=== PATIENT | female | born 1975 | race Hispanic/Latino ===

== ENCOUNTER → 2017-10-07 | Outpatient (CLI) | payer BC ==
[~2017-10-07] MED LIST: LANSOPRAZOLE30 MG PO; SUCRALFATE1 GM PO
--- NOTE | 2017-10-07 18:47 | Diagnostic Imaging Report ---
Solid-phase gastric emptying study Reason for examination: Chronic nausea The protocol used for this study is based on the Consensus Recommendations for Gastric Scintigraphy by the [employer] [employer] and the Society of Nuclear Medicine. Clinical information: The patient is not diabetic. The patient has not had prior gastrointestinal surgery. The patient is not on any medications expected to affect gastric motility. The patient has been fasting for at least 6 hours prior to this exam. Radiopharmaceutical: Tc-99m sulfur colloid 1 mCi Report: The radiopharmaceutical was added to 1/2 cup egg whites that were then prepared and served with 2 pieces of white bread toasted, 30 grams of jam and 4 ounces of water. The patient took the meal orally without difficulty. Images were obtained of the abdomen in the anterior and posterior projections at 10 minutes post the meal and at 1, 2, 3, and 4 hours. Uptake was determined from the geometric mean of the anterior and posterior counts and the counts were corrected for decay of the radiolabel. The percent gastric retention of the labeled meal at: 1 hour was 76% (normal 30-90%) 2 hours was 22% (normal <60%) 3 hours was 9% (normal <30%) 4 hours was 1% (normal <10%) Impression: Normal gastric emptying pattern. The findings do not support the clinical diagnosis of gastroparesis. Signed by: Dr. Taylor Curry M.D. on 10/07/2017 6:44 PM
== END ==
LOC: NM 08:37
PROVIDERS: ATTEND Internal Medicine Gastroenterology
DX: K31.84 Gastroparesis (principal)
CPT/HCPCS: 78264; A9541

== ENCOUNTER 2017-10-20 07:05 | Emergency (ER) | payer BC ==
[~2017-10-20] VITALS: Ht 162.6 cm; Wt 49.9 kg
[2017-10-20] MEDS ORDERED: MORPHINE SULFATE INJ 4 MG/ML INJ IV STA (07:33)
[2017-10-20] MEDS ORDERED: FAMOTIDINE 20 MG/2 ML VIAL IV ONE ×2 (07:40→07:45)
[2017-10-20] MEDS ORDERED: ONDANSETRON HCL INJ 2 MG/ML VIAL IV ONE (07:45)
[2017-10-20 07:49] LABS: BASOPHILS % 0.5 % (0.0-1.0); EOSINOPHILS # (AUTO) 0.1 (0.0-0.4); EOSINOPHILS % 1.1 % (0.0-6.0); HEMATOCRIT 40.7 % (34.2-44.1); HEMOGLOBIN 13.3 g/dL (12.0-16.0); LYMPHOCYTES % 31.9 % (18.0-39.1); MEAN CORPUSCULAR HEMOGLOBIN 27.9 pg (28-32); MEAN CORPUSCULAR HGB CONC 32.7 g/dL (31-35); MEAN CORPUSCULAR VOLUME 85.3 fL (81-99); MONOCYTES # (AUTO) 0.5 (0.2-0.8); MONOCYTES % 8.3 % (4.4-11.3); NEUTROPHILS # (AUTO) 3.6 (2.1-6.9); NEUTROPHILS % 57.9 % (38.7-80.0); PLATELET COUNT 272 x10e3/uL (140-360); RED BLOOD COUNT 4.77 x10e6/uL (3.6-5.1); RED CELL DISTRIBUTION WIDTH 14.4 % (11.7-14.4)
[2017-10-20] MEDS ORDERED: DIATRIZOATE MEGL/DIATRIZOA SOD 30 ML BTL PO ONE (07:50)
[2017-10-20 07:51] LABS: BILIRUBIN,URINE NEGATIVE (NEGATIVE); CLARITY,URINE SL CLOUDY (CLEAR); COLOR,URINE YELLOW (YELLOW); KETONES,URINE 2+ (NEGATIVE); LEUKOCYTE ESTERASE ,URINE NEGATIVE (NEGATIVE); NITRITE,URINE NEGATIVE (NEGATIVE); PROTEIN,URINE DIPSTICK NEGATIVE (NEGATIVE); URINE UROBILINOGEN 0.2 mg/dL (0.2 - 1)
[2017-10-20 08:04] LABS: BACTERIA,URINE RARE /HPF; EPITHELIAL CELLS,URINE FEW /LPF; MUCUS,URINE FEW (RARE)
[2017-10-20 08:08] LABS: ALANINE AMINOTRANSFERASE 17 IU/L (0-55); ALBUMIN 4.5 g/dL (3.5-5.0); ALBUMIN/GLOBULIN RATIO 1.2 (0.8-2.0); ALKALINE PHOSPHATASE 43 IU/L (40-150); AMYLASE 48 U/L (25-125); ANION GAP 13.3 mmol/L (8-16); BLOOD UREA NITROGEN 12 mg/dL (7-26); BUN/CREATININE RATIO 17 (6-25); CALCIUM 9.4 mg/dL (8.4-10.2); CARBON DIOXIDE 22 mmol/L (22-29); CHLORIDE 107 mmol/L (98-107); CREATININE, SERUM 0.71 mg/dL (0.57-1.11); EST GLOMERULAR FILTRATION RATE > 60 ML/MIN (60-); GLUCOSE 86 mg/dL (74-118); LIPASE 49 U/L (8-78); POTASSIUM 3.3 mmol/L (3.5-5.1); SODIUM 139 mmol/L (136-145)
[2017-10-20] MEDS ORDERED: DONNATAL/LIDOCAINE/MAALOX 30 ML SUSP PO ONE (09:45)
[2017-10-20] MEDS ORDERED: LIDOCAINE VISC 2% SOLN 15 ML UDC ONE (09:51)
[2017-10-20] MEDS ORDERED: BELLADONNA ALK/PHENOBARBITAL 5 ML UDC ONE (09:52)
[2017-10-20] MEDS ORDERED: MAGNESIUM/ALUMINUM/SIMETHICONE 30 ML UDC ONE (09:52)
--- NOTE | 2017-10-20 09:53 | Diagnostic Imaging Report ---
PROCEDURE: CT ABDOMEN AND PELVIS WITH CONTRAST TECHNIQUE: The abdomen and pelvis were scanned utilizing a multidetector helical scanner from the diaphragm to the lesser trochanter after the IV administration of 100 cc of Isovue 370 and the oral administration of water and are mixed with Gastrografin. Coronal and sagittal multiplanar reformations were obtained. DLP: 195.46 mGy-cm COMPARISON: None. INDICATIONS: EPIGASTRIC PAIN, RADIATING TO BACK FINDINGS: LOWER THORAX: Normal. HEPATOBILIARY: There is intrahepatic biliary dilatation predominantly within the left lobe. Extrahepatic biliary dilatation is also present with the common bile duct measuring 1 cm. Multiple hepatic cysts are present with the largest measuring 9 mm.. Gallbladder is absent with clips in the fossa. SPLEEN: No splenomegaly. PANCREAS: No focal masses or ductal dilatation. ADRENALS: No adrenal nodules. KIDNEYS/URETERS: No hydronephrosis or solid mass lesions. There are multiple renal cysts with the largest measuring 1.3 cm in the right lower pole. A 5 mm left upper pole nonobstructing stone is present. PELVIC ORGANS/BLADDER: The cervix is prominent. Uterine cavity is fluid filled PERITONEUM / RETROPERITONEUM: No free air or fluid. Single clip in the pelvis likely represents a dropped clip. LYMPH NODES: No lymphadenopathy. VESSELS: Unremarkable. GI TRACT: No distention or wall thickening. BONES AND SOFT TISSUES: There is a small fat containing umbilical hernia. IMPRESSION: 1. Intrahepatic and extrahepatic biliary dilatation. 2. Nonobstructing left upper pole renal stone. 3. Multiple small hepatic and renal cysts. Jermaine Mora D.O. Dictated by: Jermaine Mora D.O. on 10/20/2017 at 9:57 Electronically approved by: Jermaine Mora D.O. on 10/20/2017 at 9:57
[2017-10-20] MEDS ORDERED: DIPHENHYDRAMINE HCL INJ 50 MG/ML VIAL IV ONE (11:00)
[2017-10-20] MEDS ORDERED: PROMETHAZINE 12.5MG/ NACL 0.9% 12.5 MG/50 ML BAG IV ONE (11:00)
[2017-10-20 11:27] VITALS: BP 109/79
[2017-10-20] MEDS ORDERED: SODIUM CHLORIDE 0.9% 50ML 50 ML ONE (14:18)
[2017-10-20] MEDS ORDERED: IOPAMIDOL 370 MG/ML 200 ML INFUS..BTL INJ ONE (14:18)
[2017-10-21] MEDS ORDERED: ZOFRAN ODT8 MG PO (09:28)
[2017-10-21] MEDS ORDERED: PANTOPRAZOLE SO40 MG PO (09:28)
[2017-10-21] MEDS ORDERED: METOCLOPRAMIDE10 MG PO (09:28)
[2017-10-21] MEDS ORDERED: TYLENOL PO (09:29)
== END 2017-10-20 12:01 | disposition home or self-care (01) ==
LOC: ER 07:05
DX: R10.13 Epigastric pain (principal); R11.2 Nausea with vomiting, unspecified; K25.3 Acute gastric ulcer without hemorrhage or perforation
CPT/HCPCS: 36415; 74177; 80053; 81001; 82150; 83690; 84702; 85025; 87086; 99284; J1200; J2270; J2405; J2550; Q9967

== ENCOUNTER → 2017-10-21 | Outpatient (CLI) | payer BC ==
[~2017-10-21] MED LIST changes: +GADOBENATE DIMEGLUMINE 1 ML IV ONE; +METOCLOPRAMIDE10 MG PO; +PANTOPRAZOLE SO40 MG PO; +TYLENOL PO; +ZOFRAN ODT8 MG PO
--- NOTE | 2017-10-21 11:00 | Diagnostic Imaging Report ---
PROCEDURE: MRCP WITH AND WITHOUT CONTRAST TECHNIQUE: Multiplanar multisequence MRI images were obtained without and with contrast. 10 cc of multisequence was administered intravenously. COMPARISON: CT 10/20/2017 INDICATIONS: RUQ pain FINDINGS: LIVER: No hepatic signal abnormality. Multiple cysts are noted, mostly simple with a few mildly complex cysts with septations. BILIARY: Cholecystectomy. Biliary ductal dilatation with the common bile duct measuring 1 cm, likely related to post cholecystectomy reservoir effect. No filling defects in the common bile duct. PANCREAS: No mass or ductal dilatation. SPLEEN: No splenomegaly. ADRENALS: No nodules. KIDNEYS: No hydronephrosis or mass in the imaged portion of the kidneys. Multiple simple and mildly complex cysts in both kidneys, largest measures 1.6 cm and the right superior renal pole. Stones are difficult to visualize with MRI. The previously noted 5 mm left renal calculus is better seen on prior CT. PERITONEUM / RETROPERITONEUM: No upper abdominal free fluid. LYMPH NODES: No upper abdominal lymphadenopathy. VESSELS: Unremarkable. BONES AND SOFT TISSUES: Small fat-containing umbilical hernia. No suspicious marrow signal abnormalities. IMPRESSION: 1. Cholecystectomy with biliary ductal dilatation likely related to post cholecystectomy reservoir effect. 2. Hepatic and renal cysts. 1. Dictated by: Anders Welch M.D. on 10/21/2017 at 11:05 Electronically approved by: Anders Welch M.D. on 10/21/2017 at 11:05
== END ==
LOC: MRI 07:11
PROVIDERS: ATTEND Internal Medicine Gastroenterology
DX: R10.9 Unspecified abdominal pain (principal); Q44.5 Other congenital malformations of bile ducts
CPT/HCPCS: 74183

== ENCOUNTER → 2017-10-22 | Day surgery (SDC) | payer BC ==
[~2017-10-22] MED LIST changes: +FENTANYL CITRATE/PF 100MCG/2 ML INJ ONE; -GADOBENATE DIMEGLUMINE 1 ML IV ONE; +MIDAZOLAM HCL 2 MG/2 ML VIAL ONE; +PROPOFOL IV EMULSION 10 MG/ML 50 ML VIAL ONE
--- NOTE | 2017-10-22 11:17 | Operative Report ---
DATE OF PROCEDURE: October 22, 2017 REFERRING PHYSICIAN: Dr. Marilee Davis PROCEDURE PERFORMED: Esophagogastroduodenoscopy with biopsies. INDICATIONS FOR EGD: Upper abdominal pain and nausea. MEDICATION: Patient was done under MAC. Please see anesthesiologist's note. PROCEDURE: With the patient in the left lateral decubitus position, the flexible fiberoptic Olympus gastroscope was introduced into the esophagus under direct visualization without any difficulty. There was some patchy erythema noted in the distal esophagus. The scope was then advanced with ease into the stomach. Mucosa overlying the antrum revealed some patchy intense erythema and low-grade edema, and biopsies were obtained and sent to stain for H. pylori. The pylorus was intubated with ease. The scope was advanced into the 2nd portion of the duodenum. Biopsies were obtained from the proximal 2nd portion to rule out sprue. Mucosa overlying the duodenal bulb appeared to be within normal limits. The scope was then withdrawn back into the stomach and retroflexed. The mucosa overlying the fundus and the cardia appeared to be within normal limits. The scope was then straightened out. The stomach was decompressed. The scope was subsequently withdrawn. Patient tolerated the procedure well. IMPRESSION 1. Distal esophagitis, mild. 2. Gastritis, biopsied. Biopsies sent to stain for Helicobacter pylori. 3. Rule out sprue. PLAN: Follow up histology. Increase Protonix to 40 mg 1 p.o. a.c. b.i.d. Continue Carafate 1 g p.o. a.c. t.i.d. and at bedtime. Job#: [id number] RI cc:MARILEE DAVIS MD
== END | disposition home or self-care (01) ==
LOC: OR 08:35
PROVIDERS: ATTEND Internal Medicine Gastroenterology
DX: K29.50 Unspecified chronic gastritis without bleeding (principal); K20.8 Other esophagitis; K31.84 Gastroparesis; R19.7 Diarrhea, unspecified; Q21.1 Atrial septal defect; Z80.0 Family history of malignant neoplasm of digestive organs
CPT/HCPCS: 43239; 81025; J2250

== ENCOUNTER 2018-01-02 14:11 | Emergency (ER) | payer BC ==
[~2018-01-02] VITALS: Ht 162.6 cm; Wt 53.1 kg
[~2018-01-02 14:11] MED LIST changes: -FENTANYL CITRATE/PF 100MCG/2 ML INJ ONE; -MIDAZOLAM HCL 2 MG/2 ML VIAL ONE; -PROPOFOL IV EMULSION 10 MG/ML 50 ML VIAL ONE
--- NOTE | 2018-01-02 18:26 | Diagnostic Imaging Report ---
EXAM: Abdomen 2 Views INDICATION: \S\ABD PAIN \S\[id number] \S\1739 \S.br\COMPARISON: CT dated 10/20/2017 FINDINGS: Nonobstructive bowel gas pattern. No signs of pneumoperitoneum. No definite calcification overlying renal shadows. Right upper quadrant cholecystectomy clips. No acute osseous abnormality. Surgical clip overlying pelvis. Lung bases are clear. IMPRESSION: 1. Nonobstructive bowel gas pattern. Signed by: Dr. Del Early MD on 01/02/2018 6:22 PM
== END 2018-01-02 19:27 | disposition home or self-care (01) ==
LOC: ER 14:11
DX: R10.11 Right upper quadrant pain (principal); K58.0 Irritable bowel syndrome with diarrhea
CPT/HCPCS: 74022; 81025; 99283

== ENCOUNTER 2018-03-23 23:53 | Emergency (ER) | payer BC ==
[~2018-03-23] VITALS: Ht 162.6 cm; Wt 53.1 kg
== END 2018-03-24 01:15 | disposition home or self-care (01) ==
LOC: ER 23:53
DX: R10.13 Epigastric pain (principal); R11.0 Nausea; K29.50 Unspecified chronic gastritis without bleeding; F41.9 Anxiety disorder, unspecified; K21.9 Gastro-esophageal reflux disease without esophagitis; D64.9 Anemia, unspecified
CPT/HCPCS: 99282

== ENCOUNTER 2018-09-07 14:09 | Emergency (ER) | payer BC ==
[~2018-09-07] VITALS: Ht 162.6 cm; Wt 53.1 kg
[2018-09-07] MEDS ORDERED: ONDANSETRON HCL 4 MG ORAL DISINTEGRATING TAB PO ONE (15:00)
--- NOTE | 2018-09-07 15:23 | Diagnostic Imaging Report ---
EXAM: Abdomen 2 radiographs INDICATION: ^r/o constipation ^[id number] ^1500 COMPARISON: None available FINDINGS: Nonobstructive bowel gas pattern. No signs of pneumoperitoneum. Moderate to large amount of stool within colon. 6 mm calcification projecting over the left renal superior pole. Right upper quadrant surgical clips, likely related to cholecystectomy. There is also a right pelvic surgical clip. A left pelvic phlebolith. Lung bases are clear. No acute osseous abnormality. IMPRESSION: Nonobstructive bowel gas pattern. Moderate to large colonic stool burden, suggestive of constipation. 6 mm left renal superior pole calculus. Signed by: Dr. Del Early MD on 09/07/2018 3:20 PM
[2018-09-07] MEDS ORDERED: LACTULOSE SYRUP 20 GM/30 ML UDC PO ONE (15:30)
[2018-09-07] MEDS ORDERED: DOCUSATE SODIUM LIQD 100 MG/10 ML UDC NG ONE (15:30)
[2018-09-07 15:34] LABS: BILIRUBIN,URINE NEGATIVE (NEGATIVE); CLARITY,URINE CLEAR (CLEAR); COLOR,URINE YELLOW (YELLOW); LEUKOCYTE ESTERASE ,URINE NEGATIVE (NEGATIVE); NITRITE,URINE NEGATIVE (NEGATIVE); PROTEIN,URINE DIPSTICK NEGATIVE (NEGATIVE); URINE UROBILINOGEN 0.2 mg/dL (0.2 - 1)
[2018-09-07 15:35] LABS: KETONES,URINE 3+ (NEGATIVE)
[2018-09-07 15:57] LABS: BACTERIA,URINE FEW /HPF; EPITHELIAL CELLS,URINE MODERATE /LPF; MUCUS,URINE MODERATE (RARE)
[2018-09-07 15:58] LABS: PREGNANCY TEST, URINE NEGATIVE (NEGATIVE)
[2018-09-07 16:12] VITALS: BP 97/71
== END 2018-09-07 16:14 | disposition home or self-care (01) ==
LOC: ER 14:09
DX: M54.6 Pain in thoracic spine (principal); K59.00 Constipation, unspecified; F41.9 Anxiety disorder, unspecified; K21.9 Gastro-esophageal reflux disease without esophagitis; D64.9 Anemia, unspecified
CPT/HCPCS: 74018; 81001; 81025; 99283

== ENCOUNTER 2018-12-25 10:17 | Emergency (ER) | payer BC ==
[~2018-12-25] VITALS: Ht 162.6 cm; Wt 53.1 kg
[2018-12-25] MEDS ORDERED: SODIUM CHLORIDE 0.9% 1000ML 1,000 ML IV STA ×2 (10:57)
--- NOTE | 2018-12-25 11:23 | NUR ---
PATIENT SIGNED A CONSENT FOR RELEASE OF RECORDS FOR CT ABD DONE ON TUESDAY, FAXED TO [facility].
[2018-12-25] MEDS ORDERED: MEPERIDINE HCL INJ 25 MG/ML VIAL IV ONE (11:30)
[2018-12-25] MEDS ORDERED: PANTOPRAZOLE 40 MG 10ML VIAL IV ONE (11:30)
[2018-12-25] MEDS ORDERED: ONDANSETRON HCL INJ 2MG/ML 2ML 2 MG/ML VIAL IV ONE (11:30)
[2018-12-25 11:36] LABS: BASOPHILS % 0.7 % (0.0-1.0); EOSINOPHILS % 0.7 % (0.0-6.0); HEMATOCRIT 38.5 % (34.2-44.1); HEMOGLOBIN 11.9 g/dL (12.0-16.0); INR 1.01; LYMPHOCYTES # (AUTO) 1.3 (1.0-3.2); LYMPHOCYTES % 21.2 % (18.0-39.1); MEAN CORPUSCULAR HEMOGLOBIN 25.8 pg (28-32); MEAN CORPUSCULAR HGB CONC 30.9 g/dL (31-35); MEAN CORPUSCULAR VOLUME 83.3 fL (81-99); MONOCYTES # (AUTO) 0.4 (0.2-0.8); MONOCYTES % 5.9 % (4.4-11.3); NEUTROPHILS # (AUTO) 4.4 (2.1-6.9); NEUTROPHILS % 71.2 % (38.7-80.0); PLATELET COUNT 238 x10e3/uL (140-360); PROTHROMBIN TIME 13.8 seconds (11.9-14.5); RED BLOOD COUNT 4.62 x10e6/uL (3.6-5.1)
[2018-12-25 11:37] LABS: PARTIAL THROMBOPLASTIN TIME 30.1 seconds (23.8-35.5)
[2018-12-25 11:47] LABS: ALANINE AMINOTRANSFERASE 10 IU/L (0-55); ALBUMIN 3.9 g/dL (3.5-5.0); ALBUMIN/GLOBULIN RATIO 1.1 (0.8-2.0); ALKALINE PHOSPHATASE 43 IU/L (40-150); ANION GAP 13.9 mmol/L (8-16); BLOOD UREA NITROGEN 13 mg/dL (7-26); BUN/CREATININE RATIO 19 (6-25); CALCIUM 9.4 mg/dL (8.4-10.2); CARBON DIOXIDE 23 mmol/L (22-29); CHLORIDE 108 mmol/L (98-107); CREATINE KINASE 57 IU/L (29-168); CREATININE, SERUM 0.69 mg/dL (0.57-1.11); EST GLOMERULAR FILTRATION RATE > 60 ML/MIN (60-); GLUCOSE 76 mg/dL (74-118); LIPASE 52 U/L (8-78); POTASSIUM 3.9 mmol/L (3.5-5.1); SODIUM 141 mmol/L (136-145)
[2018-12-25 11:48] LABS: BILIRUBIN,URINE NEGATIVE (NEGATIVE); CLARITY,URINE CLEAR (CLEAR); COLOR,URINE YELLOW (YELLOW); KETONES,URINE NEGATIVE (NEGATIVE); LEUKOCYTE ESTERASE ,URINE NEGATIVE (NEGATIVE); NITRITE,URINE NEGATIVE (NEGATIVE); PROTEIN,URINE DIPSTICK NEGATIVE (NEGATIVE); URINE UROBILINOGEN 0.2 mg/dL (0.2 - 1)
[2018-12-25 11:50] LABS: PREGNANCY TEST, URINE NEGATIVE (NEGATIVE)
[2018-12-25 12:06] LABS: BACTERIA,URINE MODERATE /HPF; EPITHELIAL CELLS,URINE FEW /LPF; MUCUS,URINE FEW (RARE); RBC,URINE 0-5 /HPF (0-5); WBC,URINE (MAN) 0-5 /HPF (0-5)
--- NOTE | 2018-12-25 12:37 | Diagnostic Imaging Report ---
EXAMINATION: CHEST SINGLE (PORTABLE) INDICATION: Abdominal pain, back pain COMPARISON: None FINDINGS: LINES/TUBES:None LUNGS:The lungs are well-inflated. No focal consolidation or pulmonary edema. PLEURA:No pleural effusion or pneumothorax. MEDIASTINUM:The cardiomediastinal silhouette appears normal in size and shape. BONES/SOFT TISSUES:No acute osseous injury. ABDOMEN:No free air under the diaphragm. IMPRESSION: No focal pneumonia or pulmonary edema. Signed by: Tori Vizcarra MD on 12/25/2018 12:34 PM
[2018-12-25 12:44] LABS: HYPOCHROMASIA SLIGHT; PLATELET ESTIMATE ADEQUATE; PLATELET MORPHOLOGY COMMENT NORMAL; POIKILOCYTOSIS MODERATE
[2018-12-25 12:45] LABS: ANISOCYTOSIS SLIGHT; ELLIPTOCYTE, RBC SLIGHT; OVALOCYTES MODERATE
[2018-12-25 12:46] LABS: RBC MORPHOLOGY COMMENT ABNORMAL
--- NOTE | 2018-12-25 16:40 | NUR ---
Desi ROWLEY NP IN [facility] DISCUSSING THE CURRENT PLAN OF CARE AND D/C INSTRUCTIONS,VERBALIZED UNDERSTANDING. OK TO D/C HOME WITHOUT RECEIVING ORDERED MEDICATIONS,EKG AT THIS TIME. NO SIGNS OF ACUTE DISTRESS NOTED AT THIS TIME.
== END 2018-12-25 16:52 | disposition home or self-care (01) ==
LOC: ER 10:17
DX: R10.84 Generalized abdominal pain (principal); E78.5 Hyperlipidemia, unspecified; D64.9 Anemia, unspecified; F41.9 Anxiety disorder, unspecified; K21.9 Gastro-esophageal reflux disease without esophagitis
CPT/HCPCS: 36415; 71045; 80053; 81001; 81025; 82550; 82553; 83690; 83735; 83880; 84443; 84484; 85025; 85610; 85730; 87086; 99283

== ENCOUNTER → 2022-06-26 | Day surgery (SDC) | payer BC ==
[~2022-06-26] MED LIST changes: +DOCUSATE SODIU100 MG PO; +FENTANYL CITRATE/PF 100MCG/2 ML INJ ONE; +FERROUS SULFAT324 MG PO; +LIDOCAINE HCL 2% LOCAL INJ 5 ML SDV VIAL INJ ONE; +METHYLPREDNISOLO4 M1 PO; +MIDAZOLAM HCL 2 MG/2 ML VIAL ONE; +POVIDONE IODINE 0.05% 0.05 % ML PO ONE; +PROPOFOL IV EMULSION 10 MG/ML 20 ML VIAL ONE
[2022-06-26 11:20] VITALS: BP 115/74
[2022-06-30 07:17] LABS: ENDOMYSIAL ANTIBODIES, IGA Negative (Negative)
== END | disposition home or self-care (01) ==
LOC: OR 08:18
PROVIDERS: ATTEND Internal Medicine Gastroenterology
DX: K29.70 Gastritis, unspecified, without bleeding (principal); K20.90 Esophagitis, unspecified without bleeding; K21.9 Gastro-esophageal reflux disease without esophagitis; K44.9 Diaphragmatic hernia without obstruction or gangrene; N20.0 Calculus of kidney
CPT/HCPCS: 43239; 43450; 81025; 82784; 83516; 86256; C9113; J2001; J2250; J2704; J3010